=== PATIENT | female | born 1990 | race Caucasian/White ===

== ENCOUNTER 2017-12-27 17:14 | Emergency (ER) | payer OTHER ==
[2017-12-27 19:27] LABS: BILIRUBIN,URINE NEGATIVE (NEGATIVE); CLARITY,URINE CLEAR (CLEAR); GLUCOSE, URINE (UA) NEGATIVE (NEGATIVE); KETONES,URINE (UA) NEGATIVE (NEGATIVE); LEUKOCYTE ESTERASE, URINE NEGATIVE (NEGATIVE); NITRITE,URINE NEGATIVE (NEGATIVE); OCCULT BLOOD,URINE MODERATE (NEGATIVE); PROTEIN,URINE NEGATIVE (NEGATIVE); UROBILINOGEN,URINE 0.2 (NORMAL) E.U./dL (NORMAL)
[2017-12-27 19:29] LABS: HCG UR QUAL NEGATIVE
[2017-12-27 19:33] LABS: BACTERIA,URINE Rare /HPF (None Seen); SQUAMOUS EPITHELIAL CELL,UR FEW Squamous (<= Few)
--- NOTE | 2017-12-27 19:52 | ED Physician Documentation ---
PD HPI FEMALE - Stated complaint Stated Complaint: R SIDE PX - Chief complaint Chief Complaint: Abd Pain - History obtained from History obtained from: Patient - History of Present Illness Timing - onset: Today Timing - details: Gradual onset (onset was mild at first with aching right lower abd, which then increased and became severe the past hour. Consistent RLQ and right flank area. Had noted some regular menstrual bleeding this morning, so initially thought pain was just abnormal menstrual cramps. However got very severe pain. She does have a history of constipation and hemorrhoids and gets blood with wiping at times, and had some of that yesterday. Has not had pain like the current pain in the past.), Constant Associated symptoms: Abdominal pain, Vaginal bleeding (menstrual like started this morning.). No: Fever, Vaginal discharge Contributing factors: Sexually active. No: , control, Exposed to STD Similar symptoms before: Has not had sx before Recently seen: Not recently seen Review of Systems Constitutional: denies: Fever, Chills, Myalgias Nose: denies: Rhinorrhea / runny nose, Congestion Throat: denies: Sore throat Respiratory: denies: Cough GI: reports: Abdominal Pain, Nausea, Constipation. denies: Vomiting, Diarrhea : reports: Frequency (today). denies: Dysuria Skin: denies: Rash, Lesions Musculoskeletal: reports: Back pain (today, right flank). denies: Neck pain Neurologic: denies: Generalized weakness, Focal weakness, Numbness, Near syncope Endocrine: denies: Weight loss Immunocompromised: denies: Immunocompromised PD PAST MEDICAL HISTORY - Past Medical History Cardiovascular: None Respiratory: None Neuro: None Endocrine/Autoimmune: None : None - Past Surgical History Past Surgical History: No - Present Medications Home Medications: Ambulatory Orders Medication Instructions Recorded Confirmed HYDROcod/ACETAM 5/325 [[place] 5/325] 1 - 2 ea PO Q6H PRN #20 tablet 06/04/15 Penicillin V Potassium 500 mg PO QID #40 tablet 06/04/15 HYDROcod/ACETAM 5/325 [[place] 5/325] 1 tab PO Q6H PRN #15 tablet 12/27/17 Naproxen 375 mg PO BID #20 tablet 12/27/17 Ondansetron Odt [Zofran] 4 mg TL Q6H PRN #15 tablet 03/28/18 - Allergies Allergies/Adverse Reactions: Allergies Allergy/AdvReac Type Severity Reaction Status Date / Time No Known Drug Allergies Allergy Verified 06/04/15 08:26 - Social History Does the pt smoke?: No Smoking Status: Never smoker Does the pt drink ETOH?: Yes Does the pt have substance abuse?: No - POLST Patient has POLST: No PD ED PE NORMAL - Vitals Vital signs reviewed: Yes - General General: Alert and oriented X 3, Well developed/nourished, Other (appears in pain) - HEENT HEENT: Pharynx benign - Neck Neck: Supple, no meningeal sign, No adenopathy - Cardiac Cardiac: RRR, No murmur - Respiratory Respiratory: Clear bilaterally - Abdomen Abdomen: Normal bowel sounds, Soft, Non distended, No organomegaly, Other (very tender RLQ with local guarding and percussion tenderness. ) - Back Back: Other (right CVA tenderness to percussion. ) - Derm Derm: Normal color, Warm and dry - Extremities Extremities: No deformity, No tenderness to palpate, Normal ROM s pain, No edema , No calf tenderness / cord - Neuro Neuro: Alert and oriented X 3, No motor deficit, Normal speech Results - Vitals Vitals: Vital Signs - 24 hr 12/27/17 12/27/17 12/27/17 17:36 21:30 22:00 Temperature 37.0 C Heart Rate 62 75 83 Respiratory 17 16 18 Rate Blood Pressure 128/87 H 111/38 L 104/59 L O2 Saturation 100 98 98 Oxygen O2 Source Room air - Labs Labs: Laboratory Tests 12/27/17 12/27/17 12/27/17 19:20 19:53 19:53 WBC 10.2 RBC 4.16 L Hgb 12.2 Hct 37.4 MCV 89.7 MCH 29.3 MCHC 32.6 RDW 12.0 Plt Count 290 MPV 7.4 L Neut # 6.1 Lymph # 3.0 [place] # 0.9 Eos # 0.1 Baso # 0.1 Absolute Nucleated RBC 0.00 Nucleated RBC % 0.0 Sodium 134 L Potassium 4.1 Chloride 103 Carbon Dioxide 24 Anion Gap 7.0 BUN 24 H Creatinine 0.9 Estimated GFR (MDRD) 75 L Glucose 100 Calcium 8.8 Total Bilirubin 0.5 AST 22 ALT 26 Alkaline Phosphatase 41 L Total Protein 7.4 Albumin 4.2 Globulin 3.2 Albumin/Globulin Ratio 1.3 Lipase 14 L Urine Color YELLOW Urine Clarity CLEAR Urine pH 6.0 Ur Specific [place] 1.025 Urine Protein NEGATIVE Urine Glucose (UA) NEGATIVE Urine Ketones NEGATIVE Urine Occult Blood MODERATE H Urine Nitrite NEGATIVE Urine Bilirubin NEGATIVE Urine Urobilinogen 0.2 (NORMAL) Ur Leukocyte Esterase NEGATIVE Urine RBC 11-25 H Urine WBC 0-3 Ur Squamous Epith Cells FEW Squamous Urine Bacteria Rare Ur Microscopic Review INDICATED Urine HCG, Qual NEGATIVE - Rads (name of study) KUB CT Radiology: Prelim report reviewed (2.5 mm distal right ureteral stone with mild hydronephrosis. Incidental is 7x4 cm cystic mass left adnexa, recommend U/S. ) PD MEDICAL DECISION MAKING - ED course Complexity details: reviewed results, re-evaluated patient (much improved with meds IV. ), considered differential, d/w patient Departure - Departure Disposition: 01 Home, Self Care Clinical Impression: Ureteral calculi, Left ovarian cyst Abdominal pain Qualifiers: Abdominal location: right lower quadrant Qualified Code(s): R10.31 - Right lower quadrant pain Condition: Stable Record reviewed to determine appropriate education?: Yes Instructions: ED Cyst Ovarian, ED Stone Renal W Colic Follow-Up: Asif Mario ARNP [Primary Care Provider] - Prescriptions: HYDROcod/ACETAM 5/325 [[place] 5/325] 1 tab PO Q6H PRN #15 tablet PRN Reason: Pain Naproxen 375 mg PO BID #20 tablet Ondansetron Odt [Zofran] 4 mg TL Q6H PRN #15 tablet PRN Reason: Nausea / Vomiting Comments: Drink lots of fluids. The pain that you have is from a kidney stone passing in the ureter on the right side. Because a little bit of swelling of the kidney thus the pain to the back. It is small in size and should be passable and likely would over the next couple of days. Use naproxen or ibuprofen twice daily for the next several days. Add ondansetron if needed for nausea. Add Tylenol or hydrocodone if needed for pain. Recheck if not completely better over the next couple of days and return sooner if severe again. There was also found on the CT scan and confirmed on ultrasound is a cyst on the left ovary. This is not in a location that it would be given you the current pain. It is moderately large and I would suggest follow-up with your primary care to repeat the ultrasound in a few weeks to see if it has receded and decreased in size or gone away.
[2017-12-27 20:04] LABS: BASOPHILS # (AUTO) 0.1 10^3/uL (0.0-0.1); BASOPHILS % (AUTO) 1.2 %; EOSINOPHILS # (AUTO) 0.1 10^3/uL (0.0-0.7); EOSINOPHILS % (AUTO) 1.1 %; HGB - HEMOGLOBIN 12.2 g/dL (12.0-16.0); LYMPHOCYTES % (AUTO) 29.4 %; MEAN CORPUSCULAR HEMOGLOBIN 29.3 pg (27.0-31.0); MEAN CORPUSCULAR HGB CONC 32.6 g/dL (32.0-36.0); MEAN CORPUSCULAR VOLUME 89.7 fL (81.0-99.0); MEAN PLATELET VOLUME 7.4 fL (7.9-10.8); MONOCYTES # (AUTO) 0.9 10^3/uL (0.0-1.0); MONOCYTES % (AUTO) 8.6 %; NEUTROPHILS # (AUTO) 6.1 10^3/uL (1.5-6.6); NEUTROPHILS % (AUTO) 59.7 %; PLT - PLATELET COUNT 290 10^3/uL (130-450); RED BLOOD COUNT 4.16 10^6/uL (4.20-5.40); WHITE BLOOD COUNT 10.2 x10^3/uL (4.8-10.8)
[2017-12-27 20:09] LABS: ALBUMIN 4.2 g/dL (3.2-5.5); ALBUMIN/GLOBULIN RATIO 1.3 (1.0-2.2); BILIRUBIN,TOTAL 0.5 mg/dL (0.2-1.0); CALCIUM 8.8 mg/dL (8.5-10.3); CREATININE 0.9 mg/dL (0.4-1.0); TOTAL PROTEIN 7.4 g/dL (6.7-8.2)
[2017-12-27] MEDS ORDERED: KETOROLAC 60 MG/2 ML VIAL IVP STA (20:17)
[2017-12-27] MEDS ORDERED: ONDANSETRON 4 MG/2 ML VIAL IVP STA (20:17)
[2017-12-27] MEDS ORDERED: SODIUM CHLORIDE 0.9% 1,000 ML IV ONE (20:17)
[2017-12-27] MEDS ORDERED: HYDROmorphone 1 MG/ML CARPUJECT IVP STA (20:17)
[2017-12-27] MEDS: PROMETHAZINE INJ 12.5 MG in SODIUM CHLORIDE 0.9% 50 ML IV STA ×2 (21:27→22:19)
--- NOTE | 2017-12-27 21:41 | CT Report ---
EXAM: CT ABDOMEN AND PELVIS EXAM DATE: 12/27/2017 09:13 PM. CLINICAL HISTORY: Right sided pain, radiating to right flank. COMPARISONS: None. TECHNIQUE: Routine helical CT imaging was performed through the abdomen and pelvis. IV contrast: No. Enteric contrast: No. Reconstructions: Coronal and sagittal. In accordance with CT protocol optimization, one or more of the following dose reduction techniques w ere utilized for this exam: automated exposure control, adjustment of mA and/or KV based on patient s ize, or use of iterative reconstructive technique. FINDINGS: Lung Bases: Unremarkable. Liver: Normal in size and contour. Gallbladder/Bile Ducts: Unremarkable. Spleen: Normal in size. Pancreas: Normal in contour. Adrenal Glands: Normal. Kidneys: There is mild hydronephrosis of the right kidney. No right kidney stone. There is mild bile of the proximal right ureter. There is a calcification in the right pelvis measuring 2.5 mm in diamet er. Suspicious for a distal right ureter stone. Peritoneal Cavity/Bowel: No dilated bowel or transition zone. No abnormal fluid or gas collection. Pelvic Organs: There is an ovoid homogeneous density structure in the posterior left adnexa measuring 7.3 x 4.8 x 4.3 cm. No free fluid in the pelvis. Vasculature: No aneurysms or other significant abnormality. Bones: No significant abnormality. Other: None. IMPRESSION: 1. Mild right hydronephrosis with findings suspicious for a 2.5 mm distal right ureter stone. 2. Posterior left adnexal cyst or mass measuring 7.3 x 4.8 x 4.3 cm. Possibly associated with the lef t ovary. Consider pelvic ultrasound to characterize further. No free fluid in the pelvis. [facility] Referring Provider Line: [phone] SITE ID: [id number]
[2017-12-27] MEDS ORDERED: PROMETHAZINE 25 MG/1 ML VIAL ONE (22:22)
[2017-12-27] MEDS ORDERED: ONDANSETRON ODT 4 MG Prepack 2 TL PRN (23:22)
[2017-12-27] MEDS ORDERED: HYDROcod/ACET 5/325 Prepack 4 PO STA (23:22)
[2017-12-27 23:32] VITALS: BP 95/58
--- NOTE | 2017-12-27 23:54 | Ultrasound Report ---
EXAM: PELVIC ULTRASOUND LIMITED EXAM DATE: 12/27/2017 11:31 PM. CLINICAL HISTORY: Left adnexal mass/cyst seen on CT scan. Pain. COMPARISON: CT, 12/27/2017. TECHNIQUE: Realtime transabdominal pelvic scan performed with static image documentation. Pulsed Dopp ler and color Doppler performed. FINDINGS: Uterus: Anteverted. Right Ovary: Not imaged. Left Ovary: 9.0 x 4.7 x 4.3 cm, volume 93 cc. Cyst measuring 7.6 x 4.2 x 4.3 cm. Ovarian blood flow i s difficult to detect. Free Fluid: None. Other: Bilateral ureteral jets incidentally noted in the urinary bladder. IMPRESSION: 1. Enlarged left ovary measuring 93 cc with dominant cyst measuring 7.6 x 4.2 x 4.3 cm. 2. Ovarian blood flow is difficult to detect. This is of uncertain significance and could be due to t echnical factors. Torsion is considered less likely but not entirely excluded. [facility] Referring Provider Line: [phone] SITE ID: [id number]
== END 2017-12-27 23:37 | disposition home or self-care (01) ==
LOC: ED 17:14
DX: N13.2 Hydronephrosis with renal and ureteral calculous obstruction (principal); N83.202 Unspecified ovarian cyst, left side
CPT/HCPCS: 36415; 74176; 76856; 80053; 81001; 81025; 83690; 85025; 93976; 96365; 96375; 99283; 99284; J1170; J7040; 81003

== ENCOUNTER 2018-07-08 07:43 | Emergency (ER) | payer OTHER ==
[2018-07-08 07:53] VITALS: BP 112/60
[2018-07-08] MEDS ORDERED: DEXAMETHASONE 10 MG/ML VIAL PO STA (08:01)
[2018-07-08] MEDS ORDERED: CHERRY SYRUP 10 ML UDC PO ONE (08:04)
--- NOTE | 2018-07-08 08:07 | ED Physician Documentation ---
PD SAGAR HEENT - Stated complaint Stated Complaint: THROAT PX/VOMITING/DIARRHEA - Chief complaint Chief Complaint: General - History obtained from History obtained from: Patient - History of Present Illness Timing - onset: How many weeks ago (1) Timing - duration: Weeks (1) Timing - details: Gradual onset, Still present Location: Throat Improves: Medication Worsens: Swalllowing Associated symptoms: Fever, Congestion, Rhinorrhea, Headache, Cough, Other (vomting and diarrhea) Similar symptoms before: Diagnosis (strep) Recently seen: Clinic - Additional information Additional information: 28-year-old female with a sore throat for the past week has developed nausea vomiting diarrhea 2 days ago as well. She continues to have the sore throat and fever and chills. She did going to see her primary care doctor early on in the illness and was told to continue her [id number] medications. She has been taking a number of [id number] medications all of which seem to help somewhat. She indicates that she has vomited a lot and has nausea associated with this. Review of Systems Constitutional: reports: Fever, Chills, Fatigue, Sweats Eyes: denies: Decreased vision Ears: denies: Ear pain Nose: reports: Rhinorrhea / runny nose, Congestion Throat: reports: Sore throat Cardiac: denies: Chest pain / pressure, Palpitations Respiratory: reports: Cough. denies: Dyspnea GI: reports: Nausea, Vomiting, Diarrhea. denies: Abdominal Pain : denies: Dysuria, Frequency Skin: denies: Rash Musculoskeletal: denies: Neck pain, Back pain, Extremity pain Neurologic: denies: Generalized weakness, Focal weakness, Numbness PD PAST MEDICAL HISTORY - Past Medical History Cardiovascular: None Respiratory: None Endocrine/Autoimmune: None : None - Past Surgical History Past Surgical History: No - Present Medications Home Medications: Ambulatory Orders Medication Instructions Recorded Confirmed Acetaminophen [Tylenol Extra 07/08/18 Strength] Azithromycin [Zithromax] 250 mg PO DAILY #6 tablet 07/08/18 Ibuprofen 07/08/18 Ondansetron Odt [Zofran] 4 mg TL Q6H PRN #10 tablet 07/08/18 - Allergies Allergies/Adverse Reactions: Allergies Allergy/AdvReac Type Severity Reaction Status Date / Time No Known Drug Allergies Allergy Verified 07/08/18 07:53 - Social History Does the pt smoke?: No Smoking Status: Never smoker Does the pt drink ETOH?: Yes Does the pt have substance abuse?: No - Immunizations Immunizations are current?: Yes - POLST Patient has POLST: No PD ED PE NORMAL - Vitals Vital signs reviewed: Yes (febrile ) - General General: Alert and oriented X 3, No acute distress, Well developed/nourished - HEENT HEENT: Atraumatic, PERRL, EOMI, Ears normal, Other (The pharynx is with erythema and exudate very likely could be strep) - Neck Neck: Supple, no meningeal sign, No bony TTP, Other (tender submandibular adenopathy ) - Cardiac Cardiac: RRR, No murmur - Respiratory Respiratory: No respiratory distress, Clear bilaterally - Abdomen Abdomen: Soft, Non tender - Back Back: No CVA TTP, No spinal TTP - Derm Derm: Normal color, Warm and dry, No rash - Extremities Extremities: No deformity, No edema - Neuro Neuro: Alert and oriented X 3, switch adjuster 2-12 intact, No motor deficit, No sensory deficit, Normal speech Eye Opening: Spontaneous Motor: Obeys Commands Verbal: Oriented GCS Score: 15 - Psych Psych: Normal mood, Normal affect Results - Vitals Vitals: Vital Signs - 24 hr 07/08/18 07:47 Temperature 38.0 C H Heart Rate 97 Respiratory 16 Rate Blood Pressure 112/60 O2 Saturation 96 Oxygen O2 Source Room air Procedures - IVC sono (time) [id number] Bedside IVC sono: IVC measures (cm) (1.22), IVC collapsed c insp (cm) (complete), Dehydration (est 1 liter deficit) PD MEDICAL DECISION MAKING - ED course Complexity details: reviewed results, re-evaluated patient, considered differential, d/w patient, d/w family ED course: 28 y/o female with pharyngitis and continued fever 6 days into the illness has exudative pharyngitis with a negative rapid strep and she is treated in the ED with dexamethasone and we will put her on some zithromax and give her some zofran. She is mildly dehydrated but able to take oral fluids. - Sepsis Event Vital Signs: Vital Signs - 24 hr 07/08/18 07:47 Temperature 38.0 C H Heart Rate 97 Respiratory 16 Rate Blood Pressure 112/60 O2 Saturation 96 Oxygen O2 Source Room air Departure - Departure Disposition: 01 Home, Self Care Clinical Impression: Pharyngitis, Dehydration Condition: Stable Instructions: ED Strep Pharyngitis Poss, ED Dehydration Follow-Up: Asif Mario ARNP [Primary Care Provider] - Prescriptions: Azithromycin [Zithromax] 250 mg PO DAILY #6 tablet Ondansetron Odt [Zofran] 4 mg TL Q6H PRN #10 tablet PRN Reason: Nausea / Vomiting
== END 2018-07-08 08:39 | disposition home or self-care (01) ==
LOC: ED 07:43
DX: J02.9 Acute pharyngitis, unspecified (principal); E86.0 Dehydration
CPT/HCPCS: 87070; 87430; 99283; 99284; A9270